=== PATIENT | female | born 1945 | race Caucasian/White ===

== ENCOUNTER → 2016-07-09 | Outpatient (CLI) | payer MEDICARE, BC ==
[~2016-07-09] MED LIST: ACETAMINOPHEN PO; AMBIEN10 MG PO; ASPIRIN81 M2 PO; ASPIRINEC PO; AZULFIDINE PO; B COMPLEX1 CA1 PO; CALCIUM ACETAT667 M2 PO; CIPRO PO; COLACE PO; ECOTRIN81 M1 PO; FOLIC ACID1 MG PO; GABAPENTIN300 M2 PO; LEFLUNOMIDE; LEVOFLOXACIN500 MG PO; LIPITOR PO; LORTAB 10-5001 EACH PO; LOW DOSE ASPIRI81 M1 PO; MACRODANTIN50 MG PO; MAGIC; METAMUCIL1 PKT PO; MILK OF MAGNESIA PO; MULTI VITAMIN1 EACH PO; NEURONTIN100 MG PO; NILSTAT PO; ORENCIA125 MG/1 M SQ; OSCAL PO; PANTOPRAZOLE SO40 MG PO; PHILLIPS' COLO1 EACH PO; PREDNISONE PO; PRILOSEC PO; PRILOSEC40 MG PO; PROAMATINE10 MG PO; PROTONIX PO; PROVENTIL0.83 MG/ML IH; SODIUM BICARBO650 MG PO; SULFASALAZINE500 M1 PO; TRAMADOL HCL50 M2 PO; ULTRAM PO; VITAMIN D 4001 UDTAB PO; VITAMIN D2 PO; ZOCOR20 MG PO
--- NOTE | ~2016-07-09 | US98 ---
[facility] A Service of [facility] RADIOLOGY TEXT RESULTS PATIENT: JOHN HERNANDEZ LOCATION: [facility] : 41 UNIT #: [id number] AGE: [address]: Mercedes Ramirez MD SEX: F ORDER DR: [id number] [address] [address] [id number] O MR#: [id number] Acc #: [id number] NAME: JOHN HERNANDEZ : 1945 SEX: F STUDY DATE/TIME: 07/09/2016 10:35 UNIT: SGUS ROOM: STUDY DESCRIPTION: US Pelvic Non-OB Complete Attending Physician: Mercedes Ramirez M.D. Referring Physician: Mercedes Ramirez M.D. Ordering Physician: Mercedes Ramirez M.D. Primary Care Physician: Mercedes Ramirez M.D. MEDICAL IMAGING REPORT This report is preliminary unless electronic signature is present. EXAM Transabdominal and transvaginal pelvic ultrasound DATE 07/09/2016 HISTORY 71-year-old female with recurrent urinary tract infections. Hysterectomy several years ago. Currently on medication for urinary tract infection today. Symptoms began approximately 8 days ago. COMPARISON None. FINDINGS Transabdominal imaging is performed for generalized visualization of pelvic structures while transvaginal imaging is performed for more detail evaluation of the adnexal regions. The uterus is surgically absent. Neither the right nor left ovary can be satisfactorily visualized either on transabdominal or transvaginal pelvic imaging, potentially obscured by bowel gas. No pelvic free fluid is identified and no pelvic soft tissue mass is seen. The urinary bladder has an unremarkable sonographic appearance. IMPRESSION 1. Unremarkable pelvic ultrasound. 2. Urinary bladder has an unremarkable sonographic appearance. 3. Neither the right nor the left ovary can be visualized transabdominally or transvaginally. 4. Hysterectomy. [facility] A Service of [facility] RADIOLOGY TEXT RESULTS PATIENT: JOHN HERNANDEZ LOCATION: [facility] : 43 UNIT #: [id number] AGE: [address]: Mercedes Ramirez MD SEX: F ORDER DR: Dictated by... Munira Trevino M.D. THIS IS AN ELECTRONICALLY VERIFIED REPORT Munira Trevino M.D. at 07/10/2016 8:[address] [facility]/virgie TD: 07/09/2016 18:56 JOB #: [id number] MEDICAL IMAGING REPORT Page 1 of 1
== END | disposition home or self-care (01) ==
LOC: SGUS 10:05
DX: R10.2 Pelvic and perineal pain (principal); Z90.710 Acquired absence of both cervix and uterus
CPT/HCPCS: 76830; 76856

== ENCOUNTER → 2016-08-06 | Outpatient (CLI) | payer MEDICARE, BC ==
--- NOTE | ~2016-08-06 | US37 ---
[facility] A Service of [facility] RADIOLOGY TEXT RESULTS PATIENT: JOHN HERNANDEZ LOCATION: [facility] : 43 UNIT #: [id number] AGE: [address]: Mercedes Ramirez MD SEX: F ORDER DR: [id number] [address] [address] [id number] O MR#: [id number] Acc #: [id number] NAME: JOHN HERNANDEZ : 1945 SEX: F STUDY DATE/TIME: 08/06/2016 13:26 UNIT: SNIV ROOM: STUDY DESCRIPTION: US Carotid W/Doppler Bilateral Attending Physician: Mercedes Ramirez M.D. Referring Physician: Mercedes Ramirez M.D. Ordering Physician: Mercedes Ramirez M.D. Primary Care Physician: Mercedes Ramirez M.D. MEDICAL IMAGING REPORT This report is preliminary unless electronic signature is present. 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 Left ICA stent more than 20 years ago. FINDINGS Duplex imaging of the carotid arteries were performed. The right common carotid artery is patent. Internal/external carotid arteries are patent with no significant plaque in the internal. Velocity in the right common carotid is 96, internal is 87 and is tortuous, external is 52 cm/sec. Right ICA:CCA ratio is 0.9. On the left side, common carotid artery is patent with a velocity of 43 cm/sec. There is a carotid artery stent seen in the internal carotid artery which is completely occluded. No flow is seen in the internal carotid artery. External carotid artery velocity is 76 cm/sec. Antegrade flow is seen in the right and left vertebral arteries. IMPRESSION 1. Minimal plaque is seen in the right internal carotid artery which is widely patent otherwise. No hemodynamically significant stenosis on the right side. 2. Left internal carotid artery is completely occluded with a stent within it. External carotid artery is patent. 3. Antegrade flow is seen in the right and left vertebral arteries. [facility] A Service of [facility] RADIOLOGY TEXT RESULTS PATIENT: JOHN HERNANDEZ LOCATION: [facility] : 43 UNIT #: [id number] AGE: [address]: Mercedes Ramirez MD SEX: F ORDER DR: Dictated by... Khanh Mireles M.D. THIS IS AN ELECTRONICALLY VERIFIED REPORT Khanh Mireles M.D. at 08/09/2016 10:50 AM [facility] TD: 08/07/2016 09:17 JOB #: [id number] MEDICAL IMAGING REPORT Page 1 of 1
== END | disposition home or self-care (01) ==
LOC: SNIV 13:03
DX: I65.22 Occlusion and stenosis of left carotid artery (principal); I65.23 Occlusion and stenosis of bilateral carotid arteries
CPT/HCPCS: 93880

== ENCOUNTER 2016-10-13 17:46 | Emergency (ER) | payer MEDICARE, BC ==
[~2016-10-13] VITALS: Ht 162.6 cm; Wt 68.0 kg
--- NOTE | ~2016-10-13 | CR210 ---
[facility] A Service of [facility] RADIOLOGY TEXT RESULTS PATIENT: JOHN HERNANDEZ LOCATION: [facility] : 43 UNIT #: [id number] AGE: [address]: Kamar Nieves MD SEX: F ORDER DR: [id number] [facility] [address] [place], [place] [address] [id number] MR#: [id number] Acc #: [id number] NAME: JOHN HERNANDEZ. : 1945 SEX: F STUDY DATE/TIME: 10/13/2016 20:25 UNIT: [facility] ROOM: STUDY DESCRIPTION: CR Ribs Uni 2 View W PA Ch Lt Attending Physician: Kamar Nieves M.D. Ordering Physician: Kamar Nieves M.D. Primary Care Physician: Mercedes Ramirez M.D. MEDICAL IMAGING REPORT This report is preliminary unless electronic signature is present EXAM Left ribs 4 views HISTORY Left rib pain after fall yesterday. FINDINGS 4 views of left ribs demonstrate no fracture. No pneumothorax or pleural effusion. Small hiatal hernia. Moderate right upper thoracic curve and mild lower left thoracic curve. IMPRESSION No acute findings. No left rib fracture. Dictated by... Kehinde Sue M.D. THIS IS AN ELECTRONICALLY VERIFIED REPORT Kehinde Sue M.D. at 10/14/2016 6:10 PM [facility]/lanyer TD: 10/14/2016 02:17 JOB #: [id number] MEDICAL IMAGING REPORT Page 1 of 1 COPY
[~2016-10-13 17:46] MED LIST changes: -LOW DOSE ASPIRI81 M1 PO; -MACRODANTIN50 MG PO
[2016-11-12] MEDS ORDERED: MACRODANTIN50 MG PO (09:40)
[2016-11-12] MEDS ORDERED: PANTOPRAZOLE SO40 MG PO (09:40)
[2016-11-12] MEDS ORDERED: LOW DOSE ASPIRI81 M1 PO (09:41)
== END 2016-10-13 21:50 | disposition home or self-care (01) ==
LOC: CED 17:46
DX: S20.212A Contusion of left front wall of thorax, initial encounter (principal); Z86.73 Personal history of transient ischemic attack (TIA), and cerebral infarction without residual deficits; W01.0XXA Fall on same level from slipping, tripping and stumbling without subsequent striking against object, initial encounter; Y92.009 Unspecified place in unspecified non-institutional (private) residence as the place of occurrence of the external cause; Z88.2 Allergy status to sulfonamides; Z88.1 Allergy status to other antibiotic agents
CPT/HCPCS: 71101; 99285

== ENCOUNTER → 2016-11-14 | Day surgery (SDC) | payer MEDICARE, BC ==
[~2016-11-14] MED LIST changes: +LOW DOSE ASPIRI81 M1 PO; +MACRODANTIN50 MG PO
--- NOTE | ~2016-11-14 | OR ---
Unit #: [id number] #: [id number] Patient: JOHN HERNANDEZ [id number] [address] [place], [place] [address] [id number] O MR#: [id number] NAME: JOHN HERNANDEZ ROOM: Date of Procedure: 11/14/2016 Admission Date: 11/14/2016 Surgeon: Lev Rendon M.D. : 1945 Attending Physician: Lev Rendon M.D. Primary Care Physician: Mercedes Ramirez M.D. OPERATIVE REPORT PREOPERATIVE DIAGNOSES Dyspepsia as well as retrosternal ascending heartburn, and epigastric pain. PROCEDURES PERFORMED 1. Upper gastrointestinal endoscopy and biopsy. 2. Upper gastrointestinal endoscopy and a dilation. POSTOPERATIVE DIAGNOSES 1. The patient had mild distal antral gastritis. This was in the form of focal erythema in the antral area. 2. Medium-sized hiatus hernia. 3. Distal esophageal mucosal ring. The latter was dilated using a 60-Lao Dent dilator. RECOMMENDATIONS The patient will be followed up in the office in 8 to 10 weeks' time. SEDATION USED MAC. DESCRIPTION OF PROCEDURE Following detailed explanation of the potential risks and complications of an upper endoscopy, namely perforation, bleeding, and complication related to sedation, the patient was brought to GI lab and laid in the left lateral decubitus position. Lubricated tip of the Olympus video upper endoscope was passed through the bite block into the proximal esophagus under direct vision. The entire esophageal mucosa was examined and appeared normal except for presence of a distal esophageal mucosal ring. The latter was felt to be nonobstructing. In addition, a medium-sized hiatus hernia was seen and traversed. The scope was then advanced into the gastric cavity. Mucosa of the fundus, body, and antrum was examined and the patient was noted to have prepyloric antral diffuse erythema. Pylorus was intubated with visualization of the normal duodenal bulb and second and third part of the duodenum. Upon withdrawal and retroflexion; incisura, cardia, and greater curve was examined and a biopsy was obtained from the antrum for CLOtest. The scope was then withdrawn in the distal esophagus. Entire esophageal mucosa was examined all the way up to pharynx. No additional findings were noted. A 60-Lao Dent dilator was introduced through the oral cavity and advanced into the esophagus. Relook endoscopy showed hardly any difference indicating the ring was wide open to start with. The scope was Unit #: [id number] #: [id number] Patient: JOHN HERNANDEZ then withdrawn and the patient returned to the recovery area. She tolerated the procedure without any postprocedure complications. Dictated by... Alejandra Solitario/ashley TD: 11/14/2016 11:57 JOB #: [id number] OPERATIVE REPORT Page 1 of 1 X Lev Rendon MD X PROCEDURE OPERATIVE NOTE
== END | disposition home or self-care (01) ==
LOC: COPS 08:44
DX: K22.2 Esophageal obstruction (principal); K29.70 Gastritis, unspecified, without bleeding; K44.9 Diaphragmatic hernia without obstruction or gangrene; K21.9 Gastro-esophageal reflux disease without esophagitis; E78.5 Hyperlipidemia, unspecified; Z87.891 Personal history of nicotine dependence; Z86.73 Personal history of transient ischemic attack (TIA), and cerebral infarction without residual deficits; Z87.440 Personal history of urinary (tract) infections; Z90.49 Acquired absence of other specified parts of digestive tract; Z88.2 Allergy status to sulfonamides; Z88.1 Allergy status to other antibiotic agents; Z90.710 Acquired absence of both cervix and uterus; Z96.653 Presence of artificial knee joint, bilateral; Z98.890 Other specified postprocedural states; Z79.82 Long term (current) use of aspirin; Z79.899 Other long term (current) drug therapy
CPT/HCPCS: 87077